=== PATIENT | female | born 1945 | race Caucasian/White ===

== ENCOUNTER → 2016-07-26 | Outpatient (CLI) | payer BC ==
[~2016-07-26] MED LIST: ACHD5005 PO; CATHETER FLUSH 10 ML SYR IV PRN; DOXY100C42 PO; IOHEXOL 350 MG/ML 100 ML (OMNIPAQUE 350) VIAL IV ONE; LOSA1TAB3 PO; LVT.088T PO; NS 100 ML (IVPB) BAG IV ONE; OMG1KC PO
--- OUTSIDE RECORDS SUMMARY | 2016-07-26 08:23 | XMS REPORT | Continuity of Care Document ---
Author Author [facility] Organization [facility] Address Unknown Phone Unavailable Care Team Providers Care Specifications Checker Name Role Phone Shelly Brasher PCP [phone] Source Comments Some departments are not documenting in the electronic medical record. If you do not see the information that you expected, contact Release of Information in the Health Information Management department at [phone] for further assistance in locating additional records.[facility] Active Allergies and Adverse Reactions Allergen Noted Date Severity Reactions Comments Crestor 02/27/2016 Low HEADACHE Current Medications Prescription Sig. Disp. Refills Start End Date Status Date FOLIC Take 0.5 Tabs by mouth Active ACID/MULTIVIT-MIN/LUTEIN daily. (CENTRUM SILVER PO) apixaban (ELIQUIS) 5 mg Take 5 mg by mouth twice Active tablet daily. B.ANI/L.ACI/L.ENMA/L.PLAN/ Take 1 Cap by mouth every Active L.EDITH (PROBIOTIC FORMULA 48 hours. PO) Levothyroxine (TIROSINT) Take 1 Cap by mouth Active 88 mcg cap daily. losartan(+) (COZAAR) 100 Take 100 mg by mouth Active mg tablet daily. OMEGA-3 FATTY ACIDS PO Take 1,200 mg by mouth Active daily. Active Problems Problem Noted Date Palpitations 02/27/2016 Syncope, near 02/27/2016 Overview: 01/10/16 Echo: normal global LV systolic function with an EF of ~60%. Trivial MR and TR. No evidence of significant valvular stenosis. PASP w/in normal limits. 01/11/16 Holter: NSR alternating with PAF and brief episodes of WCT during PAF. No significant bradycardia. 01/30/16 Nuclear Stress test: no evidence of any significant ischemia or infarction. No RWMA; normal global LV systolic function with EF of 73%. Normal LV cavity size. VILLELA (dyspnea on exertion) 02/27/2016 Hypercholesteremia 02/27/2016 Essential hypertension 02/27/2016 Atrial fibrillation and flutter (HCC) 02/27/2016 Social History Tobacco Use Types Packs/Day Years Used Date Former Smoker Cigarettes 0.25 10 Quit: 05/19/1975 Smokeless Tobacco: Never Used Alcohol Use Drinks/Week oz/Week Comments Yes occasionally Last Filed Vital Signs Vital Sign Reading Time Taken Blood Pressure 142/80 03/08/2016 10:46 AM CDT Pulse 53 03/08/2016 10:46 AM CDT Temperature - - Respiratory Rate - - Height 1.575 m (5' 2") 03/08/2016 10:46 AM CDT Weight 57.244 kg (126 lb 3.2 oz) 03/08/2016 10:46 AM CDT Body Mass Index 23.08 03/08/2016 10:46 AM CDT Oxygen Saturation - - Plan of Care Health Maintenance Due Date Last Done Comments Hepatitis C Screening 1945 Physical (Comprehensive) 1953 Exam Pertussis Vaccine 1957 Tetanus Vaccine 1963 Breast Cancer Screening 1986 Colorectal Cancer 01/13/1996 Screening Shingles Vaccine 2006 Osteoporosis Screening 2011 Prevnar/Pneumovax (#1) 2011 Influenza Vaccine 01/18/2016 Results from Last 3 Months Not on file
--- NOTE | 2016-07-26 09:35 | Diagnostic Imaging Report ---
PROCEDURE: CT abdomen and pelvis with contrast. TECHNIQUE: Multiple contiguous axial images were obtained through the abdomen and pelvis after administration of intravenous contrast. INDICATION: Left lower quadrant abdominal pain. Weight loss. Elevated LFTs. COMPARISON: None. FINDINGS: Included views of the lung bases are clear. CT ABDOMEN: Moderate air and stool are noted scattered throughout the colon. Normal appendix cannot be adequately identified, but there is no pericecal inflammation. Small bowel loops are nondistended. The kidneys, adrenal glands, spleen, and pancreas have a normal appearance. Liver demonstrates a single punctate rounded area of hypoenhancement involving the medial margins of segment . This may represent a cyst, but is too small to adequately characterize based on this exam. Otherwise, liver is unremarkable as well. There is no loculated fluid collection, free fluid or free air within the abdomen. No abnormal mesenteric or retroperitoneal adenopathy is seen. Postsurgical changes of previous ventral hernia repair noted. There is moderate calcified aortic and arterial atherosclerosis. Bony structures show age-related degenerative changes, but no acute abnormalities. CT PELVIS: The urinary bladder is grossly unremarkable. There is no loculated fluid collection, free fluid or free air within the pelvis. No abnormal lymph nodes are seen. Bony structures show no acute abnormalities. IMPRESSION: 1. Moderate colonic air and stool. Please correlate for constipation. 2. Otherwise, no acute abnormalities within the abdomen or pelvis. Dictated by: Dictated on workstation # [id number]
== END ==
LOC: RAD 08:19
PROVIDERS: ATTEND Internal Medicine
DX: R10.32 Left lower quadrant pain (principal); R63.4 Abnormal weight loss; R79.89 Other specified abnormal findings of blood chemistry
CPT/HCPCS: 74177

== ENCOUNTER → 2017-04-01 | Outpatient (CLI) | payer BC ==
[~2017-04-01] MED LIST changes: -CATHETER FLUSH 10 ML SYR IV PRN; -IOHEXOL 350 MG/ML 100 ML (OMNIPAQUE 350) VIAL IV ONE; -NS 100 ML (IVPB) BAG IV ONE
== END ==
LOC: RAD 09:39
PROVIDERS: ATTEND Internal Medicine
DX: Z12.31 Encounter for screening mammogram for malignant neoplasm of breast (principal)
CPT/HCPCS: 77067

== ENCOUNTER → 2018-06-23 | Outpatient (CLI) | payer BC ==
[~2018-06-23] MED LIST changes: +CATHETER FLUSH 10 ML SYR IV PRN
[2018-06-23 13:23] VITALS: BP 189/88
[2018-06-23 13:31] VITALS: BP 161/76
[2018-06-23 13:42] VITALS: BP 182/72
[2018-06-23 13:44] VITALS: BP 171/75
[2018-06-23 13:46] VITALS: BP 149/77
--- NOTE | 2018-06-24 13:42 | STRESS TEST ---
DATE OF SERVICE: 06/23/2018 RESTING AND POST EXERCISE TECHNETIUM-99M TETROFOSMIN SPECT CT IMAGING CLINICAL DIAGNOSES: Malaise, paroxysmal atrial fibrillation, hypertension and hyperlipidemia. Baseline images were carried out after injection of 10.24 mCi of technetium-99m Tetrofosmin. This was followed by exercise on a treadmill. Harlan protocol was employed. Heart rate response to exercise was normal. The patient remained hypertensive throughout the study. There was no drop in blood pressure with exercise. There was considerable baseline artifact and the ST-T segments are not interpretable for ischemia. The patient exercised for a total of 10 minutes and attained 120% of maximum predicted heart rate. After the patient had attained more than 85% of maximum predicted heart rate and had indicated that she would not be able to go for more than another minute, 29.1 mCi of technetium-99m Tetrofosmin were injected and the exercise was continued for another minute. The test was stopped on account of fatigue. In the recovery phase, brief episodes of atrial fibrillation were seen. Review of images at rest and following stress does not indicate any significant perfusion defects consistent with significant myocardial ischemia or infarction. Gated images show normal global left ventricular systolic function with normal regional wall motion. Left ventricular ejection fraction is calculated to be 69%. Left ventricular end diastolic volume is 51 mL. TID is absent (1.05). CONCLUSIONS: 1. No evidence of significant myocardial ischemia or infarction on this study. 2. Normal regional wall motion. 3. Normal global left ventricular systolic function with a calculated ejection fraction of 69%. 4. Brief episodes of paroxysmal atrial fibrillation were seen during the study. Job ID: [id number] DocumentID: [id number] Dictated Date: 06/24/2018 13:31:37 Supervisor Boarding Date: 06/24/2018 13:41:59 Dictated By: GIANCARLO BALLARD MD, MA, FACP, FACC,
== END ==
LOC: CARD 11:41
PROVIDERS: ATTEND Nurse Practitioner Family
DX: R53.81 Other malaise (principal); I48.0 Paroxysmal atrial fibrillation; I10 Essential (primary) hypertension; E78.5 Hyperlipidemia, unspecified; R01.1 Cardiac murmur, unspecified; Z79.01 Long term (current) use of anticoagulants
CPT/HCPCS: 78452; 93017; 93225; 93226

== ENCOUNTER 2019-05-28 15:39 | Observation (INO) | payer BC, MEDICARE ==
[~2019-05-28] VITALS: Ht 157 cm; Wt 63.2 kg
[~2019-05-28 15:39] MED LIST changes: -CATHETER FLUSH 10 ML SYR IV PRN
[2019-05-28] MEDS ORDERED: fentaNYL INJECTION 100 MCG/2 ML AMP ONE (16:05)
[2019-05-28] MEDS ORDERED: fentaNYL INJECTION 100 MCG/2 ML AMP IVP ONE ×2 (16:15→16:30)
--- NOTE | 2019-05-28 16:16 | ED Abdominal Pain ---
General Chief Complaint: Post OP Complications/Pain Stated Complaint: HEART CATH FRIDAY, [place] IN GROIN Nursing Triage Note: ARRIVED VIA AMB TO TRIAGE WITH COMPLAINTS OF LEFT GROIN SWELLING AND INCREASED PAIN. HEART CATH DONE ON FRIDAY IN . SENT BY URGENT CARE. Sepsis Screen: No Definite Risk Source of Information: Patient Exam Limitations: No Limitations History of Present Illness Date Seen by Provider: May 28, 2019 Time Seen by Provider: 15:53 Initial Comments Patient presents to ER by private conveyance with chief complaint that about an hour prior to arrival she started having some swelling and pain 6 out of 10 at rest higher if she walks in her left groin. She had both groins accessed venously for a catheter ablation on Friday in [place] with an statistical typist. She is on Eliquis still. She is not having any problems in her right groin. She's having no painful urination vomiting diarrhea constipation. No fever or chills. Patient references her labs from [facility] before her procedure her hemoglobin was 14. Allergies and Home Medications Allergies Coded Allergies: No Known Drug Allergies (Unverified , 12/17/11) Home Medications Levothyroxine Sodium 88 Mcg Tablet, 1 EACH PO DAILY, (Reported) Losartan/Hydrochlorothiazide 1 Tab Tablet, 1 TAB PO DAILY, (Reported) [place] 3 Polyunsat Fatty Acids 1,000 Mg Cap, 3,000 MG PO DAILY, (Reported) Patient Home Medication List Home Medication List Reviewed: Yes Review of Systems Review of Systems Constitutional: No chills, No diaphoresis EENTM: No Blurred Vision, No Double Vision Respiratory: Denies Cough, Denies Shortness of Air Cardiovascular: Denies Chest Pain, Denies Edema Gastrointestinal: Denies Constipated, Denies Diarrhea Genitourinary: Denies Discharge, Denies Drainage Skin: change in color (ecchymoses) All Other Systems Reviewed Negative Unless Noted: Yes Past Gqtaopb-Tmgjwt-Xkpcdq Hx Patient Social History Alcohol Use: Occasionally Uses Recreational Drug Use: No Smoking Status: Former Smoker Recent Foreign Travel: No Contact w/Someone Who Travel: No Recent Infectious Disease Expo: No Immunizations Up To Date Tetanus Booster (TDap): Less than 5yrs Seasonal Allergies Seasonal Allergies: No Past Medical History Surgeries: Yes (BREAST BIOPSY, COSMETIC) Section, Orthopedic Respiratory: No Cardiac: Yes (RECENT HEART CATH) Hypertension Neurological: No Gastrointestinal: No Musculoskeletal: Yes Arthritis Endocrine: Yes Hypothyroidsim Cataract Cancer: No Psychosocial: No Integumentary: No Blood Disorders: No Family Medical History Patient reports no known family medical history. Physical Exam Vital Signs Vital Signs - First Documented 05/28/19 15:47 Temp 37.0 Pulse 58 Resp 16 B/P (MAP) 192/82 (118) Pulse Ox 98 O2 Delivery Room Air Capillary Refill : Less Than 3 Seconds Height/Weight/BMI Height: 5'2" Weight: 130lbs. oz. 58.296694uf; 24.00 BMI Method: General Appearance: WD/WN, no apparent distress HEENT: PERRL/EOMI, normal ENT inspection, TMs normal, pharynx normal Neck: full range of motion, supple, normal inspection Respiratory: lungs clear, normal breath sounds, no respiratory distress, no accessory muscle use Cardiovascular: normal peripheral pulses, regular rate, rhythm Peripheral Pulses: 2+ Dorsalis Pedis (R), 2+ Left Dors-Pedis (L), 2+ Radial Pulses (R), 2+ Radial Pulses (L) Gastrointestinal: normal bowel sounds, non tender, soft Extremities: normal range of motion, normal inspection, normal capillary refill Neurologic/Psychiatric: no motor/sensory deficits, alert, normal mood/affect, oriented x 3 Skin: warm/dry, ecchymosis, other (skin above the inguinal ligament is tight, indurated, ecchymotic nonerythematous. Tender to palpation. No pulsatile mass felt.) Progress/Results/Core Measures Results/Orders Lab Results Laboratory Tests Test 05/28/19 16:15 Range/Units White Blood Count 5.0 4.3-11.0 10^3/uL Red Blood Count 3.47 L 4.35-5.85 10^6/uL Hemoglobin 10.4 L 11.5-16.0 G/DL Hematocrit 31 L 35-52 % Mean Corpuscular Volume 90 80-99 FL Mean Corpuscular Hemoglobin 30 25-34 PG Mean Corpuscular Hemoglobin Concent 33 32-36 G/DL Red Cell Distribution Width 12.4 10.0-14.5 % Platelet Count 201 130-400 10^3/uL Mean Platelet Volume 10.2 7.4-10.4 FL Neutrophils (%) (Auto) 68 42-75 % Lymphocytes (%) (Auto) 19 12-44 % Monocytes (%) (Auto) 11 0-12 % Eosinophils (%) (Auto) 3 0-10 % Basophils (%) (Auto) 0 0-10 % Neutrophils # (Auto) 3.4 1.8-7.8 X 10^3 Lymphocytes # (Auto) 1.0 1.0-4.0 X 10^3 Monocytes # (Auto) 0.5 0.0-1.0 X 10^3 Eosinophils # (Auto) 0.1 0.0-0.3 10^3/uL Basophils # (Auto) 0.0 0.0-0.1 10^3/uL Sodium Level 140 135-145 MMOL/L Potassium Level 3.9 3.6-5.0 MMOL/L Chloride Level 104 98-107 MMOL/L Carbon Dioxide Level 25 21-32 MMOL/L Anion Gap 11 5-14 MMOL/L Blood Urea Nitrogen 13 7-18 MG/DL Creatinine 0.65 0.60-1.30 MG/DL Estimat Glomerular Filtration Rate > 60 BUN/Creatinine Ratio 20 Glucose Level 101 70-105 MG/DL Calcium Level 9.7 8.5-10.1 MG/DL Corrected Calcium 9.4 8.5-10.1 MG/DL Total Bilirubin 0.5 0.1-1.0 MG/DL Aspartate Amino Transf (AST/SGOT) 28 5-34 U/L Alanine Aminotransferase (ALT/SGPT) 29 0-55 U/L Alkaline Phosphatase 49 40-136 U/L Total Protein 6.6 6.4-8.2 GM/DL Albumin 4.4 3.2-4.5 GM/DL My Orders Orders - ARABELLA IVERSON Cbc With Automated Diff (05/28/19 16:01) Comprehensive Metabolic Panel (05/28/19 16:01) Fentanyl Injection (Sublimaze Injection (05/28/19 16:15) Ed Iv/Invasive Line Start (05/28/19 16:08) Fentanyl Injection (Sublimaze Injection (05/28/19 16:05) Fentanyl Injection (Sublimaze Injection (05/28/19 16:30) Us Pseudoaneurysm Dx Repair (05/28/19 16:01) Medications Given in ED Current Medications Medications Dose Ordered Sig/Debbie Route Start Time Stop Time Status Last Admin Dose Admin Fentanyl Citrate 50 mcg ONCE ONCE IVP 05/28/19 16:15 05/28/19 16:16 DC 05/28/19 16:12 50 MCG Fentanyl Citrate 75 mcg ONCE ONCE IVP 05/28/19 16:30 05/28/19 16:31 DC 05/28/19 16:20 75 MCG Vital Signs/I&O 05/28/19 15:47 Temp 37.0 Pulse 58 Resp 16 B/P (MAP) 192/82 (118) Pulse Ox 98 O2 Delivery Room Air Blood Pressure Mean: 118 Progress Progress Note : Time: 16:21 Progress Note We'll get some labs looking for significant anemia. We have offered an observation stay. MEIR Barnes from [employer] down to express venous clot and do manual compression. The compression procedure is quite painful so the initial 50 g of fentanyl was insufficient we have ordered another 75 g of fentanyl. Venous ultrasound ruling out intravenous clot, arterial injury or aneurysm etc. 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 Reviewed: Reviewed by Me Consults : Consulting Physician: MARTI PRINGLE MD Consults Notes Discussed the presentation with Dr. Pringle and he will send his catheter lab nurse down to do manual expression and compression. He is happy to consult or observe the patient overnight. He says often these leads will be sinister and require transfusion. Dr. Pringle presented to ER and examined patient. 1720: Discussed the results of the ultrasound with Dr. Pringle and he also was unconcerned with this finding at this time. Departure Communication (Admissions) Time/Spoke to Admitting Phy: 17:20 Discussed case lab imaging with Dr. Chaudhary and he agrees to observe the patient overnight on bedrest. Time/Spoke to Consulting Phy: 16:[address] Pringle he agrees to consult on the patient. Impression Primary Impression: Hematoma of groin Qualified Codes: S30.1XXA - Contusion of abdominal wall, initial encounter Disposition: ADMITTED INPATIENT Condition: Stable Admissions Decision to Admit Reason: Admit from ER (General) Decision to Admit/Date: May 28, 2019 Time/Decision to Admit Time: 16:45 Departure-Patient Inst. Referrals: ELISA BAKER MD (PCP/Family) Primary Care Physician KISHOR,ARABELLA J May 28, 2019 16:15
[2019-05-28 16:19] LABS: BASOPHILS % (AUTO) 0 % (0-10); EOSINOPHILS # (AUTO) 0.1 10^3/uL (0.0-0.3); EOSINOPHILS % (AUTO) 3 % (0-10); HEMATOCRIT 31 % (35-52); HEMOGLOBIN 10.4 G/DL (11.5-16.0); LYMPHOCYTES % (AUTO) 19 % (12-44); MEAN CORPUSCULAR HEMOGLOBIN 30 PG (25-34); MEAN CORPUSCULAR HGB CONC 33 G/DL (32-36); MEAN CORPUSCULAR VOLUME 90 FL (80-99); MEAN PLATELET VOLUME 10.2 FL (7.4-10.4); MONOCYTES # (AUTO) 0.5 X 10^3 (0.0-1.0); MONOCYTES % (AUTO) 11 % (0-12); NEUTROPHILS # (AUTO) 3.4 X 10^3 (1.8-7.8); NEUTROPHILS % (AUTO) 68 % (42-75); PLATELET COUNT 201 10^3/uL (130-400); RED CELL DISTRIBUTION WIDTH 12.4 % (10.0-14.5)
[2019-05-28 16:38] LABS: ALANINE AMINOTRANSFERASE 29 U/L (0-55); ALBUMIN 4.4 GM/DL (3.2-4.5); ALKALINE PHOSPHATASE 49 U/L (40-136); BILIRUBIN,TOTAL 0.5 MG/DL (0.1-1.0); BUN/CREATININE RATIO 20; CALCIUM 9.7 MG/DL (8.5-10.1); CARBON DIOXIDE 25 MMOL/L (21-32); CHLORIDE 104 MMOL/L (98-107); CREATININE SERUM 0.65 MG/DL (0.60-1.30); GFR ESTIMATED > 60; GLUCOSE 101 MG/DL (70-105); POTASSIUM 3.9 MMOL/L (3.6-5.0); SODIUM 140 MMOL/L (135-145); TOTAL PROTEIN 6.6 GM/DL (6.4-8.2)
--- NOTE | 2019-05-28 17:56 | Diagnostic Imaging Report ---
INDICATION: Status post heart catheterization. Pain in the left groin. Rule out pseudoaneurysm. COMPARISON: None. TECHNIQUE: Targeted high frequency images were obtained of the left groin. FINDINGS: Evaluation of the left inguinal region demonstrates a 1 x 1 cm pseudoaneurysm arising from the left common femoral artery (image 8). There is preservation of normal flow within the common femoral vein and artery. IMPRESSION: 1. 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 Dictated by: Dictated on workstation # [id number]
[2019-05-28 18:00] VITALS: BP 195/94
[2019-05-28 18:15] VITALS: BP 188/84
[2019-05-28] MEDS ORDERED: fentaNYL INJECTION 100 MCG/2 ML AMP IV PRN (18:15)
[2019-05-28] MEDS ORDERED: ANTACID SUSP 30 ML UDC (MYLANTA) PO PRN (18:15)
[2019-05-28] MEDS ORDERED: HYDROcodone/APAP 5 MG/325 MG (LORTAB) TAB PO PRN (18:15)
[2019-05-28] MEDS ORDERED: ACETAMINOPHEN 500 MG TAB (TYLENOL) PO PRN (18:15)
[2019-05-28] MEDS ORDERED: CATHETER FLUSH 10 ML SYR IV PRN (18:15)
[2019-05-28] MEDS ORDERED: ONDANSETRON 4 MG/2 ML (SDV) Z0FRAN IV PRN (18:15)
[2019-05-28] MEDS ORDERED: LOSA100T3 PO (18:22)
[2019-05-28] MEDS ORDERED: ATOR10TA66 PO (18:27)
[2019-05-28] MEDS ORDERED: APIX5TAB PO (18:27)
[2019-05-28] MEDS ORDERED: MULT-974 PO (18:27)
[2019-05-28 18:30] VITALS: BP 185/80
[2019-05-28] MEDS ORDERED: OMEP20TA33 PO (18:39)
[2019-05-28] MEDS ORDERED: ROSU10TA22 PO (18:39)
[2019-05-28 18:45] VITALS: BP 171/98
[2019-05-28] MEDS ORDERED: PATIENT MAY USE OWN MEDS, ALL MC SCH (18:45)
[2019-05-28] MEDS ORDERED: PATIENT MAY USE OWN MED,SINGLE MED PO SCH (18:45)
--- NOTE | 2019-05-28 19:51 | NUR ---
THIS RN NOTIFIED DR. QUINN OF SMALL HARDENED AREA IN LT GROIN AREA AND ASKED IF HE STILL WANTED THIS RN TO ADMINISTER PT'S SCHEDULED DOSE OF ELIQUIS. PER DR. QUINN'S ORDER, CLAUDIA HELD THIS EVENING.
[2019-05-28] MEDS ORDERED: ROSUVASTATIN 10 MG (CRESTOR) TABLET PO SCH (21:00)
[2019-05-28] MEDS ORDERED: APIXABAN 5 MG (ELIQUIS) TABLET PO SCH (21:00)
--- NOTE | 2019-05-28 21:41 | NUR ---
THIS RN NOTIFIED DR. QUINN OF PT'S UPWARD TRENDING BP AND INABILITY TO VOLUNTARILY URINATE. NEW ORDERS OBTAINED, SEE ORDER HX.
[2019-05-28] MEDS: CATHETER FLUSH 10 ML SYR IV SCH (22:10)
--- NOTE | 2019-05-28 22:14 | NUR ---
TIMELINE NOTE BELOW: 05/28/2019 AT 2210: 100MG LOSARTAN PO ADMINISTERED PER DR. QUINN'S ORDER. 05/28/2019 AT 2214: 16FR YOUNG CATHETER PLACED BY THIS RN PER DR. QUINN'S ORDER. PT TOLERATED INSERTION WELL AND STATED MUCH RELIEF IMMEDIATELY FOLLOWING INSERTION.
[2019-05-28] MEDS ORDERED: LOSARTAN 100 MG (COZAAR) TABLET PO ONE (22:15)
[2019-05-28 23:51] VITALS: BP 145/67
[2019-05-29 03:38] LABS: BASOPHILS % (AUTO) 0 % (0-10); EOSINOPHILS # (AUTO) 0.1 10^3/uL (0.0-0.3); EOSINOPHILS % (AUTO) 2 % (0-10); HEMATOCRIT 30 % (35-52); HEMOGLOBIN 9.8 G/DL (11.5-16.0); LYMPHOCYTES # (AUTO) 0.7 X 10^3 (1.0-4.0); LYMPHOCYTES % (AUTO) 15 % (12-44); MEAN CORPUSCULAR HEMOGLOBIN 30 PG (25-34); MEAN CORPUSCULAR HGB CONC 33 G/DL (32-36); MEAN CORPUSCULAR VOLUME 90 FL (80-99); MONOCYTES # (AUTO) 0.6 X 10^3 (0.0-1.0); MONOCYTES % (AUTO) 11 % (0-12); NEUTROPHILS # (AUTO) 3.6 X 10^3 (1.8-7.8); NEUTROPHILS % (AUTO) 72 % (42-75); PLATELET COUNT 193 10^3/uL (130-400); RED CELL DISTRIBUTION WIDTH 12.3 % (10.0-14.5)
[2019-05-29 03:58] LABS: BUN/CREATININE RATIO 17; CALCIUM 9.4 MG/DL (8.5-10.1); CARBON DIOXIDE 24 MMOL/L (21-32); CHLORIDE 103 MMOL/L (98-107); GFR ESTIMATED > 60; GLUCOSE 104 MG/DL (70-105); POTASSIUM 3.8 MMOL/L (3.6-5.0); SODIUM 140 MMOL/L (135-145)
[2019-05-29 04:00] VITALS: BP 169/92
[2019-05-29] MEDS ORDERED: LEVOTHYROXINE 88 MCG (LEVOTHORID) TAB PO SCH (06:30)
[2019-05-29] MEDS ORDERED: MULTIVIT W/MINERALS TAB (THERAGRAN M) PO SCH (07:00)
[2019-05-29] MEDS ORDERED: OMEPRAZOLE 20 MG (PriLOSEC) CAP NON-FORMULARY PO SCH (07:00)
[2019-05-29 07:50] VITALS: BP 157/70
[2019-05-29] MEDS: CATHETER FLUSH 10 ML SYR IV SCH (07:59)
[2019-05-29 08:00] VITALS: BP 128/57
[2019-05-29] MEDS ORDERED: OMEGA 3 (FISH OIL) 1000 MG CAP PO SCH (09:00)
[2019-05-29] MEDS ORDERED: LOSARTAN 100 MG (COZAAR) TABLET PO SCH (09:00)
--- NOTE | 2019-05-29 09:27 | Discharge Inst-Simple/Standard ---
Discharge Inst-Standard Reconcile Patient Problems Problems Reviewed?: Yes Discharge Medications New, Converted or Re-Newed RX: Transmitted to Pharmacy Patient Instructions/Follow Up Plan of Care/Instructions/FU: Please continue to take your medications as written. Please follow up with Dr Macdonald in the next week to follow up this hospital stay. Activity as Tolerated: Yes Discharge Diet: Cardiac Diet Return to The Hospital For: Chest pain, shortness of breath, worsening swelling or bruising in your groin. WENDY BURK MD May 29, 2019 09:27
[2019-05-29] MEDS ORDERED: AMLO2.5T2 PO (11:12)
--- NOTE | 2019-05-29 11:16 | Short Stay Summary ---
History of Present Illness History of Present Illness Reason for visit/HPI 74-year-old lady with paroxysmal atrial fibrillation, underwent ablation last week, noted some swelling in her left groin earlier this week, became large hematoma and came to the emergency room yesterday evening. I'll evaluate her in the emergency room, manual pressure applied then sandbag was placed. Has large bruising on her groin. Have pain. Monitored overnight and now it appear to be soft, there is small lump probably due to the small arterial femoral pseudoaneurysm. Concerned about her hypertension, I added Norvasc. Restarted and liquids after holding the evening dose yesterday. She has been in sinus rhythm. Date of Admission May 28, 2019 at 17:10 Date of Discharge May 29, 2019 Time Seen by Provider: 11:14 Attending Physician Anais Chaudhary MD Admitting Physician Miguel Macdonald MD Consult MARTI QUINN MD Allergies and Home Medications Allergies Coded Allergies: No Known Drug Allergies (Unverified , 12/17/11) Home Medications Amlodipine Besylate 2.5 Mg Tablet, 2.5 MG PO DAILY Prescribed by: MARTI QUINN on 05/29/19 1112 Apixaban 5 Mg Tablet, 5 MG PO BID, (Reported) Levothyroxine Sodium 88 Mcg Tablet, 1 EACH PO DAILY, (Reported) Losartan Potassium 100 Mg Tablet, 100 MG PO DAILY, (Reported) [place] 3 Polyunsat Fatty Acids 1,000 Mg Cap, 3,000 MG PO DAILY, (Reported) Patient Home Medication List Home Medication List Reviewed: Yes Past Gqjkfzj-Bmnrzr-Njpbpx Hx Patient Social History Marrital Status: Employed/Student: retired Alcohol Use: Occasionally Uses Recreational Drug Use: No Smoking Status: Former Smoker Recent Foreign Travel: No Contact w/other who traveled: No Recent Infectious Disease Expo: No Immunizations Up To Date Tetanus Booster (TDap): Less than 5yrs Seasonal Allergies Seasonal Allergies: No Surgeries Yes (BREAST BIOPSY, COSMETIC) Section, Orthopedic Respiratory No Cardiovascular Yes (RECENT HEART CATH) Hypertension Neurological No Gastrointestinal No Musculoskeletal Yes Arthritis Endocrine History of Endocrine Disorders: Yes Endocrine Disorders: Hypothyroidsim HEENT HEENT Disorders: Cataract Cancer No Psychosocial History of Psychiatric Problem: No Integumentary History of Skin or Integumenta: No Blood Transfusions History of Blood Disorders: No Family Medical History Family Hx: Patient reports no known family medical history. Review of Systems Constitutional: no symptoms reported, see HPI EENTM: see HPI, no symptoms reported Respiratory: no symptoms reported, see HPI Cardiovascular: no symptoms reported, see HPI Gastrointestinal: see HPI Genitourinary: see HPI Musculoskeletal: see HPI Skin: see HPI Psychiatric/Neurological: No Symptoms Reported, See HPI Physical Exam Vital Signs Vital Signs - First Documented 05/28/19 15:47 Temp 37.0 Pulse 58 Resp 16 B/P (MAP) 192/82 (118) Pulse Ox 98 O2 Delivery Room Air Capillary Refill : Less Than 3 Seconds Height, Weight, BMI Height: 5'2" Weight: 130lbs. oz. 58.402418th; 24.00 BMI Method: General Appearance: No Apparent Distress, WD/WN Eyes: Bilateral Eye Normal Inspection, Bilateral Eye PERRL, Bilateral Eye EOMI HEENT: PERRL/EOMI, TMs Normal, Normal ENT Inspection, Pharynx Normal Neck: Full Range of Motion, Normal Inspection, Non Tender, Supple, Carotid Bruit Respiratory: Chest Non Tender, Lungs Clear, Normal Breath Sounds, No Accessory Muscle Use, No Respiratory Distress Cardiovascular: Regular Rate, Rhythm, No Edema, No Gallop, No JVD, No Murmur, Normal Peripheral Pulses Gastrointestinal: Normal Bowel Sounds, No Organomegaly, No Pulsatile Mass, Non Tender, Soft Back: Normal Inspection, No CVA Tenderness, No Vertebral Tenderness Extremity: Normal Capillary Refill, Normal Inspection, Normal Range of Motion, Non Tender, No Calf Tenderness, No Pedal Edema Neurologic/Psychiatric: Alert, Oriented x3, No Motor/Sensory Deficits, Normal Mood/Affect Skin: Normal Color, Warm/Dry, Other (Large bruise on the left groin) Lymphatic: No Adenopathy Clinical Quality Measures Admission Status Admission Status: Observation Short Stay Diagnosis Discharge Diagnosis-Short Stay Admission Diagnosis: Large left groin hematoma Hypertension Paroxysmal atrial fibrillation Anemia Final Discharge Diagnosis: Left groin Hematoma Pseudoaneurysm Hypertension Paroxysmal atrial fibrillation Conclusion Labs Laboratory Tests 05/28/19 16:15: White Blood Count 5.0, Red Blood Count 3.47L, Hemoglobin 10.4L, Hematocrit 31L, Mean Corpuscular Volume 90, Mean Corpuscular Hemoglobin 30, Mean Corpuscular Hemoglobin Concent 33, Red Cell Distribution Width 12.4, Platelet Count 201, Mean Platelet Volume 10.2, Neutrophils (%) (Auto) 68, Lymphocytes (%) (Auto) 19, Monocytes (%) (Auto) 11, Eosinophils (%) (Auto) 3, Basophils (%) (Auto) 0, Neutrophils # (Auto) 3.4, Lymphocytes # (Auto) 1.0, Monocytes # (Auto) 0.5, Eosinophils # (Auto) 0.1, Basophils # (Auto) 0.0, Sodium Level 140, Potassium Level 3.9, Chloride Level 104, Carbon Dioxide Level 25, Anion Gap 11, Blood Urea Nitrogen 13, Creatinine 0.65, Estimat Glomerular Filtration Rate > 60, BUN/Creatinine Ratio 20, Glucose Level 101, Calcium Level 9.7, Corrected Calcium 9.4, Total Bilirubin 0.5, Aspartate Amino Transf (AST/SGOT) 28, Alanine Aminotransferase (ALT/SGPT) 29, Alkaline Phosphatase 49, Total Protein 6.6, Albumin 4.4 05/29/19 03:29: White Blood Count 5.0, Red Blood Count 3.27L, Hemoglobin 9.8L, Hematocrit 30L, Mean Corpuscular Volume 90, Mean Corpuscular Hemoglobin 30, Mean Corpuscular Hemoglobin Concent 33, Red Cell Distribution Width 12.3, Platelet Count 193, Mean Platelet Volume 10.0, Neutrophils (%) (Auto) 72, Lymphocytes (%) (Auto) 15, Monocytes (%) (Auto) 11, Eosinophils (%) (Auto) 2, Basophils (%) (Auto) 0, Neutrophils # (Auto) 3.6, Lymphocytes # (Auto) 0.7L, Monocytes # (Auto) 0.6, Eosinophils # (Auto) 0.1, Basophils # (Auto) 0.0, Sodium Level 140, Potassium Le pam 3.8, Chloride Level 103, Carbon Dioxide Level 24, Anion Gap 13, Blood Urea Nitrogen 12, Creatinine 0.70, Estimat Glomerular Filtration Rate > 60, BUN/Creatinine Ratio 17, Glucose Level 104, Calcium Level 9.4 Conclusion/Plan Patient appeared to have improvement in the hematoma, soft, noted to have large bruise. No significant drop in her hemoglobin. Recommended monitoring as an outpatient and bedrest, restart L a close. Added Norvasc for her blood pressure. MARTI QUINN MD May 29, 2019 11:16
== END 2019-05-29 13:30 | disposition home or self-care (01) ==
LOC: EDUNIT# 15:39 → ER 15:41 → CSD 17:10
PROVIDERS: ADMIT Internal Medicine; ATTEND Internal Medicine
DX: S30.1XXA Contusion of abdominal wall, initial encounter (principal); I10 Essential (primary) hypertension; M19.90 Unspecified osteoarthritis, unspecified site; E03.9 Hypothyroidism, unspecified; D64.9 Anemia, unspecified; I48.0 Paroxysmal atrial fibrillation; Z87.891 Personal history of nicotine dependence
CPT/HCPCS: 36415; 76936; 80048; 80053; 85025; 85027; 96374

== ENCOUNTER → 2019-10-01 | Outpatient (CLI) | payer BC, MEDICARE ==
[~2019-10-01] MED LIST changes: +AMLO2.5T2 PO; +APIX5TAB PO; +ATOR10TA66 PO; +LOSA100T3 PO; +MULT-974 PO; +OMEP20TA33 PO; +ROSU10TA22 PO
--- NOTE | 2019-10-01 11:15 | Diagnostic Imaging Report ---
INDICATION: Routine screening. Comparison is made with prior mammogram from 04/01/2017 and 08/02/2013. 2-D and 3-D bilateral screening mammography was performed with CAD. Both breasts remain heterogeneously dense, limiting the sensitivity of mammography. Overall parenchymal pattern is stable. There are benign parenchymal and vascular calcifications bilaterally. No dominant mass or malignant appearing microcalcifications are seen. Axillae are unremarkable. IMPRESSION: BI-RADS Category 2 No mammographic features suspicious for malignancy are identified. ACR BI-RADS Category 2: Benign findings. Result letter will be mailed to the patient. Note: At least 10% of breast cancer is not imaged by mammography. Dictated by: Dictated on workstation # [id number]
== END ==
LOC: RAD 07:07
PROVIDERS: ATTEND Internal Medicine
DX: Z12.31 Encounter for screening mammogram for malignant neoplasm of breast (principal)
CPT/HCPCS: 77063; 77067

== ENCOUNTER 2020-01-20 05:36 | Outpatient (CLI) | payer BC ==
[~2020-01-20] VITALS: Ht 157.5 cm; Wt 57.7 kg
[2020-01-20] MEDS ORDERED: LEVO88TA54 PO (14:50)
[2020-01-20] MEDS ORDERED: CYCL5.5D OU (14:53)
== END 2020-01-20 14:55 ==
LOC: PREOP 05:36
PROVIDERS: ATTEND Internal Medicine
DX: Z01.818 Encounter for other preprocedural examination (principal)

== ENCOUNTER 2020-01-20 09:00 | Outpatient (RCR) | payer BC ==
[2020-01-20] MEDS ORDERED: LEVO88TA54 PO (14:50)
[2020-01-20] MEDS ORDERED: CYCL5.5D OU (14:53)
== END 2020-04-19 ==
LOC: CARD 09:00
PROVIDERS: ATTEND Internal Medicine
DX: I48.0 Paroxysmal atrial fibrillation (principal); I10 Essential (primary) hypertension; I47.1 Supraventricular tachycardia

== ENCOUNTER 2020-01-28 07:34 | Day surgery (SDC) | payer BC ==
[~2020-01-28] VITALS: Ht 157.5 cm; Wt 57.7 kg
[2020-01-28] VITALS (9 sets, daily range): BP systolic 142–171; BP diastolic 66–95
[~2020-01-28 07:34] MED LIST changes: +CYCL5.5D OU; +LACTATED RINGERS 1,000 ML IV ONE; +LEVO88TA54 PO
[2020-01-28] MEDS ORDERED: LACTATED RINGERS 1,000 ML IV PRN (08:00)
[2020-01-28] MEDS ORDERED: LIDOCAINE JELLY 2% 6 ML SYRINGE MM PRN (08:00)
[2020-01-28] MEDS ORDERED: LIDOCAINE JELLY 2% 6 ML SYRINGE ONE (08:32)
[2020-01-28] MEDS ORDERED: PROPOFOL INJECTION 50 ML IV ONE (08:34)
[2020-01-28] MEDS ORDERED: MIDAZOLAM 2 MG/2 ML (VERSED) VIAL ONE (08:34)
--- NOTE | 2020-01-28 08:39 | Pre-Op Note & Conscious Sedat ---
Pre-Operative Progress Note H&P Reviewed The H&P was reviewed, patient examined and no changes noted. Date H&P Reviewed: Jan 28, 2020 Time H&P Reviewed: 08:00 Conscious Sedation Pre-Proced ASA Score 2 For ASA 3 and 4: Consider anesthesia and medical clearance. Also, for patients with a history of failed moderate sedation consider anesthesia. Airway Lungs Heart ASA score ASA 1: a normal healthy patient ASA 2: a patient with a mild systemic disease (mid diabetes, controlled hypertension, obesity ASA 3: a patient with a severe systemic disease that limits activity (angina, COPD, prior Myocardial infarction) ASA 4: a patient with an incapacitating disease that is a constant threat to life (CHF, renal failure) ASA 5: a moribund patient not expected to survive 24 hrs. (ruptured aneurysm) ASA 6: a declared brain- patient whose organs are being harvested. For emergent operations, add the letter E after the classification Mallampati Classification Grade 1 Sedation Plan Analgesia, Amnesia, Plan communicated to team members, Discussed options with patient/fam, Discussed risks with patient/fam The patient is an appropriate candidate to undergo the planned procedure, sedation, and anesthesia. The patient immediately re-assessed prior to indication. ELISA BAKER MD Jan 28, 2020 08:39
--- NOTE | 2020-01-28 09:54 | Anesthesia-General Post-Op ---
MAC Patient Condition Mental Status/LOC: Same as Preop Cardiovascular: Satisfactory Nausea/Vomiting: Absent Respiratory: Satisfactory Pain: Controlled Complications: Absent Post Op Complications Complications None Follow Up Care/Instructions Patient Instructions None needed. Anesthesiology Discharge Order Discharge Order Patient is doing well, no complaints, stable vital signs, no apparent adverse anesthesia problems. No complications reported per nursing. ANJELICA MARTINEZ CRNA Jan 28, 2020 09:54
--- NOTE | 2020-01-28 19:44 | OPERATIVE REPORT ---
DATE OF SERVICE: COLONOSCOPY SUMMARY INDICATION FOR THE PROCEDURE: Left lower quadrant abdominal pain. DESCRIPTION OF PROCEDURE: The patient was placed in the left lateral decubitus position. Prior to undergoing colonoscopy, digital rectal evaluation was performed. Anal sphincter tone was normal and the perianal reflexes intact. No abnormalities were noted on digital inspection of the anal canal or distal rectal vault. The colonoscope was then inserted into the rectum and under direct visualization advanced to the cecum. The cecum was identified by identification of the ileocecal valve and cecal strap. Photographic documentation was obtained. Quality of the prep was fair. Procedure was done under Diprivan base anesthesia. There was no evidence for internal or external hemorrhoids and the rectum was unremarkable. The sigmoid colon, descending colon, splenic flexure, transverse colon and hepatic flexure were unremarkable. Present in the proximal ascending colon was a diminutive polyp. It was biopsied and ablated and submitted for histopathology with no blood loss. The remainder of the ascending colon and cecum were unremarkable. ASSESSMENT: One diminutive polyp was removed from the ascending colon with an otherwise unremarkable colonoscopy to the cecum. Considering the patient's age and lack of family history for colon cancer, we will not likely be recommending future screening colonoscopy. Job ID: [id number] DocumentID: [id number] Dictated Date: 01/28/2020 10:44:32 Entry Level Truck Driver Date: 01/28/2020 19:43:49 Dictated By: ELISA BAKER MD
== END 2020-01-28 10:30 | disposition home or self-care (01) ==
LOC: ENDO 07:34
PROVIDERS: ATTEND Internal Medicine
DX: D12.2 Benign neoplasm of ascending colon (principal); I10 Essential (primary) hypertension; I48.0 Paroxysmal atrial fibrillation; E03.9 Hypothyroidism, unspecified; Z79.899 Other long term (current) drug therapy; Z88.8 Allergy status to other drugs, medicaments and biological substances
CPT/HCPCS: 88305

== ENCOUNTER → 2022-02-15 | Outpatient (CLI) | payer BC ==
[~2022-02-15] MED LIST changes: -LACTATED RINGERS 1,000 ML IV ONE; +NF-CRES10T PO; -ROSU10TA22 PO
--- NOTE | 2022-02-15 15:58 | Diagnostic Imaging Report ---
Indication: Routine screening. Comparison is made with prior mammograms 10/01/2019 and 04/01/2017. 2-D and 3-D bilateral screening mammography was performed with CAD. Both breasts are heterogeneously dense, limiting the sensitivity of mammography. Benign parenchymal and vascular calcifications are again noted. No mass or malignant-appearing microcalcifications are seen. Axillae are unremarkable. IMPRESSION: BI-RADS Category 2 No mammographic features suspicious for malignancy are identified. ACR BI-RADS Category 2: Benign findings. Result letter will be mailed to the patient. Note: At least 10% of breast cancer is not imaged by mammography. Dictated by: Dictated on workstation # [id number]
== END ==
LOC: RAD 10:36
PROVIDERS: ATTEND Internal Medicine
DX: Z12.31 Encounter for screening mammogram for malignant neoplasm of breast (principal)
CPT/HCPCS: 77063; 77067

== ENCOUNTER → 2023-03-21 | Outpatient (CLI) | payer BC ==
[~2023-03-21] VITALS: Ht 157.5 cm; Wt 55.8 kg
[~2023-03-21] MED LIST changes: +LIDOCAINE 1% INJ 20 ML VIAL ONE; +LOSA-417 PO; -LOSA100T3 PO
[2023-03-21 07:30] VITALS: BP 167/77
--- NOTE | 2023-03-21 16:47 | OPERATIVE REPORT ---
DATE OF SERVICE: 03/21/2023 PREOPERATIVE DIAGNOSIS: Intermittent palpitations following atrial fibrillation ablation. POSTOPERATIVE DIAGNOSIS: Intermittent palpitations following atrial fibrillation ablation. PROCEDURE: Implantable loop recorder implantation. INDICATIONS FOR PROCEDURE: The patient is a 78-year-old lady who has been experiencing infrequent palpitations following atrial fibrillation ablation. Implantable loop recorder implantation was carried out after having obtained an informed consent. DESCRIPTION OF PROCEDURE: [facility] The left prepectoral area was prepared and draped in the usual sterile fashion. Lidocaine 1% was used for local anesthesia. The tools provided with the [employer] LINQ II device were used to make a subcutaneous pocket anterior to the fourth intercostal space into which the loop recorder was placed and the wound edges were closed using Dermabond and Steri-Strips. The serial number of the device is [id number]. She tolerated the procedure well. Job ID: [id number] DocumentID: [id number] Dictated Date: 03/21/2023 08:33:06 Top Dyeing Machine Tender Date: 03/21/2023 16:45:00 Dictated By: GIANCARLO BALLARD MD; CHASE; FACP; FACC;
== END ==
LOC: CARD 07:16
PROVIDERS: ATTEND Internal Medicine Cardiovascular Disease
DX: I49.5 Sick sinus syndrome (principal); I48.0 Paroxysmal atrial fibrillation; I47.10 Supraventricular tachycardia, unspecified
CPT/HCPCS: 33285; C1764

== ENCOUNTER → 2023-04-22 | Outpatient (CLI) | payer BC ==
[~2023-04-22] MED LIST changes: +CATHETER FLUSH 10 ML SYR IVP PRN; -LIDOCAINE 1% INJ 20 ML VIAL ONE
[2023-04-22 09:46] VITALS: BP 191/91
--- NOTE | 2023-04-25 14:41 | STRESS TEST ---
DATE OF SERVICE: 04/22/2023 RESTING AND POST EXERCISE TECHNETIUM-99M TETROFOSMIN SPECT CT IMAGING: ORDERING PHYSICIAN: Shelly Brasher MD; CHASE; HERBER; KAVITAC PRIMARY PHYSICIAN: Dr. Macdonald. CLINICAL DIAGNOSIS: Coronary artery disease. Baseline images were carried out after injection of 10.81 mCi of technetium-99m tetrofosmin. This was followed by exercise on a treadmill. Harlan protocol was employed. The patient exercised for a total of 9 minutes and attained more than 90% of maximum predicted heart rate. After she had attained more than 85% of maximum predicted heart rate, had indicated that she would not be able to go for more than another minute, 29.9 mCi of technetium-99m Tetrofosmin were injected and the exercise was continued for another minute. The test was stopped on account of fatigue. She did not report chest discomfort. At peak exercise, due to significant baseline artifact, ST segments cannot be interpreted for ischemia. Review of images at rest and following stress does not indicate any evidence of significant myocardial ischemia or infarction. Gated images show normal global left ventricular systolic function and normal regional wall motion. Left ventricular ejection fraction is calculated to be 76%. CONCLUSIONS: 1. No evidence of significant myocardial ischemia or infarction during the study. 2. Normal regional wall motion. 3. Normal global left systolic function with a calculated ejection fraction of 76%. Job ID: [id number] DocumentID: [id number] Dictated Date: 04/25/2023 10:07:11 Baker Date: 04/25/2023 14:39:00 Dictated By: SHELLY BRASHER MD; CHASE; HERBER; JUSTIN;
== END ==
LOC: CARD 08:30
PROVIDERS: ATTEND Internal Medicine Cardiovascular Disease
DX: I25.10 Atherosclerotic heart disease of native coronary artery without angina pectoris (principal)
CPT/HCPCS: 78452; 93017; A9502